=== PATIENT | female | born 1970 | race Caucasian/White ===

== ENCOUNTER 2023-01-05 10:33 | Outpatient (RCR) | payer OTHER, SELFPAY | END 2023-02-02 23:59 | LOC: NS 10:33 | PROVIDERS: PCP Student in an Organized Health Care Education/Training Program; Referring Provider Nurse Practitioner Family; Visit Provider Nurse Practitioner Family | DX: Z71.3 Dietary counseling and surveillance (principal); E66.3 Overweight; E78.5 Hyperlipidemia, unspecified; Z68.28 Body mass index [BMI] 28.0-28.9, adult | CPT/HCPCS: 97802 ==

== ENCOUNTER 2023-07-25 03:45 | Emergency (ER) | payer OTHER, SELFPAY ==
[2023-07-25 03:45] VITALS: BP 127/81; PULSE 97; RESP 18; TEMP 36.4; O2SAT 97; BMI 26.9
[2023-07-25 04:03] VITALS: O2SAT 93
--- NOTE | 2023-07-25 04:03 | EDS_ITS ---
HPI History of Present Illness Chief Complaint: Cough Informant: patient Narrative Narrative: Patient feels like she is having cough and congestion chest tightness for about a week. She thought it was allergies but now she thinks it something else and more than that like an infection. She was having subjective fevers last 1 or 2 days. She went to urgent care they before yesterday and was prescribed prednisone 50 mg a day, she had 2 doses and feels like it is not helping. She has albuterol at home and it is helping very little. She denies any leg swelling, does not specifically describe orthopnea. No history of heart problems. She is healthy otherwise except for the asthma. Patient did a home COVID test that was negative. [facility] Medical History Migraine Hyperlipidemia Asthma Home Medications ?Medication ?Instructions ?Recorded ?Last Taken ?Type bupropion HCl 100 mg tablet 100 mg PO DAILY 06/11/13 06/11/13 07:00 History multivitamin,uv-wkam-rxycokbe 27 1 tab PO DAILY 06/11/13 06/10/13 History mg-0.4 mg tablet (Therems-M) oxycodone-acetaminophen 5 mg-325 2 tab PO Q4H PRN PRN Pain #60 tabs 06/13/13 Unknown Rx mg tablet azithromycin 250 mg tablet 250 mg PO DAILY #6 TABLETS 07/25/23 Unknown Rx hydrocodone-homatropine 5 mg-1.5 5 ml PO Q6H PRN cough 2 days #30 mL 07/25/23 Unknown Rx mg/5 mL (5 mL) oral syrup Allergy/AdvReac Type Severity Reaction Status Date / Time simvastatin Allergy Mild Hives Verified 07/25/23 03:50 aspirin AdvReac nose bleeds Verified 07/25/23 03:50 Social History Smoking Status: Never smoker ROS ROS ED Constitutional Constitutional ED: Reports fever(s) and malaise; Denies chills ENT ENT ED: Reports nasal congestion and throat swelling; Denies ear pain, rhinorrhea or sore throat Cardiovascular Cardiovascular: Denies palpitations Respiratory/Chest Respiratory/Chest: Reports chest congestion, chest tightness, cough, dyspnea and wheezing; Denies sputum or stridor Gastrointestinal Gastrointestinal: Denies abdominal pain, diarrhea, nausea or vomiting Genitourinary Genitourinary ED: Denies dysuria or hematuria Musculoskeletal Musculoskeletal: Denies myalgias or neck pain Integumentary Denies abscess or rash Neurologic Neurologic: Denies headache(s), paresthesias or weakness Psychiatric Psychiatric: Denies depression or suicidal thoughts Endocrine Endocrinology: Denies polydipsia or polyuria EXAM Physical Exam Const Vital Signs: 07/25/23 03:45 Temperature 97.5 F L Temperature Source Temporal Pulse Rate 97 Respiratory Rate 18 Blood Pressure 127/81 H Blood Pressure Mean 96 Pulse Ox 97 Oxygen Delivery Method Room Air Positive well nourished and well developed General Appearance ED: well developed and NAD HEENT Reports moist mucous membranes HEENT Narrative: No stridor. Mildly hoarse. normocephalic and atraumatic Throat: Negative for posterior oropharynx abnormal Eyes PERRL and EOMs intact bilaterally Neck no lymphadenopathy, supple, no meningeal signs and no JVD Resp Resp Narrative: Tachypneic but no respiratory distress. Diffuse mild expiratory wheezing. Equal breath sounds bilaterally. Cardio no murmurs Rate: regular rate Rhythm: regular rhythm GI non-tender and non-distended Extremity normal to inspection General Extremety ED: Negative for edema General Extremity: Negative for edema Neuro oriented x3, CN's II-XII intact bilaterally and no sensory deficits noted Sensorium / Orientation: alert Motor Exam: strength 5/5 throughout Psych mental status grossly normal Skin Lesions: no lesions Rashes: no rashes MDM MDM MDM Narrative Medical decision making narrative: Performed a two-view chest x-ray, on my interpretation it is negative for acute infiltrate or pneumothorax. In the meantime she was given a dose of subcutaneous terbutaline as well as a duo nebulizer treatment. She felt much better after this. She is requesting an antibiotic. We discussed the pros and cons of that, and the fact that if this is viral bronchitis that the antibiotic will not help and that is the majority of cases. She understands and would like it anyway, we will give her a prescription for a Z-Jacques which she states has helped in the past. Also asking for prescription for something for the cough. I will give her prescription for some hydrocodone cough syrup, given appropriate discharge instructions and reasons to return. We also discussed doing more albuterol than every 4 hours at home if she is needing it and the limitations there. Discharge Plan Triage Chief Complaint: Cough ED Provider: Darrin Carbajal Dx/Rx/DC Orders Clinical Impression: Acute asthma exacerbation, Acute bronchitis with bronchospasm Instructions: Acute Bronchitis, Asthma Action Plan Prescriptions: New azithromycin 250 mg tablet 250 mg PO DAILY Qty: 6 0RF Rx Instructions: double dose (2 tab) on first day hydrocodone-homatropine 5-1.5 mg/5 mL (5 mL) syrup 5 ml PO Q6H PRN (Reason: cough) 2 Days Qty: 30 0RF No Action bupropion HCl 100 MG tablet 100 mg PO DAILY Patient Comments: ANTIDEPRESSANT multivitamin,[id number] [Therems-M] 1 TABLET tablet 1 tab PO DAILY Patient Comments: VITAMIN SUPPLEMENT oxycodone-acetaminophen 1 TABLET tablet 2 tab PO Q4H PRN PRN (Reason: Pain) Qty: 60 0RF Patient Comments: PAIN Primary Care Provider: Howard Baca Referrals: Howard Baca DO [Primary Care Provider] - 3-5 Days if not improving Print Language: Croatian Disposition Disposition: Home, Self Care
[2023-07-25 04:15] VITALS: PULSE 99; RESP 16
[2023-07-25] MEDS: Ipratropium/Albuterol Sulfate 3 ML AMPUL.NEB INHALATION (04:15)
--- NOTE | 2023-07-25 04:27 | RAD_ITS ---
EXAM: XR CHEST, 2 VIEWS CLINICAL INDICATION: cough, sob, fever TECHNIQUE: Frontal and lateral views of the chest. COMPARISON: No relevant prior studies available. FINDINGS: LUNGS AND PLEURAL SPACES: Unremarkable. No consolidation or edema. No pneumothorax. No effusion. HEART: Unremarkable. Cardiac silhouette not enlarged. MEDIASTINUM: Central airways and mediastinal contour are unremarkable. BONES/JOINTS: Unremarkable. No acute fracture. SOFT TISSUES: Unremarkable. RAD/Chest PA and Lateral IMPRESSION: No acute cardiopulmonary abnormality. Electronically Signed: Nicanor Snow MD at 5:03 EDT ,
[2023-07-25 06:01] VITALS: BP 113/73; PULSE 73; RESP 16; TEMP 36.2; O2SAT 97
--- NOTE | 2023-07-25 12:55 | ED.RN ---
PT REQUESTING RX BE SENT TO [facility] [place] DUE TO [facility] BEING OUT OF STOCK. DR COBB SENT NEW SCRIPT. LEFT A VM FOR PT WITH UPDATE
== END 2023-07-25 06:03 | disposition home or self-care (01) ==
PROVIDERS: Emergency Provider Emergency Medicine; PCP Student in an Organized Health Care Education/Training Program; Visit Provider Emergency Medicine
DX: J45.901 Unspecified asthma with (acute) exacerbation (principal); J20.9 Acute bronchitis, unspecified; E78.5 Hyperlipidemia, unspecified
CPT/HCPCS: 71046; 94640; 99282